=== PATIENT | female | born 1930 | race Caucasian/White ===

== ENCOUNTER 2016-09-09 18:56 | Emergency (ER) | payer MEDICARE ==
[2016-09-09 19:38] LABS: BASO # 0.1 K/mm3 (0.0-0.2); BASO % 0.8 % (0.2-1.0); EOS # 0.1 (0.0-0.5); EOS % 1.2 % (0.9-2.9); HEMOGLOBIN 14.4 gm/l (12.0-16.0); IMM NEUT% 0.3 % (0-1); LYMPH # 1.7 (1.0-4.8); LYMPH % 22.6 % (15-45); MEAN CELL VOLUME 99.6 fl (81.0-99.0); MEAN CORPUSCULAR HEMOGLOBIN 31.9 pg (27.0-31.0); MEAN PLATELET VOLUME 9.9 fl (7.4-10.4); MONO # 0.7 (0.0-0.8); MONO % 9.6 % (4-12); NEUT % 65.5 % (43-75); PLATELET COUNT 284 K/mm3 (130-400)
[2016-09-09 19:45] LABS: INR 1.63; PARTIAL THROMBOPLASTIN TIME 26.5 SECONDS (24.5-33.0); PROTHROMBIN TIME 17.5 SECONDS (9.3-11.4)
[2016-09-09 19:51] LABS: ALB/GLOB RATIO 1.3 (>1.0); ALBUMIN 3.5 gm/dL (3.5-5.7); CALCIUM 8.5 mg/dL (8.6-10.3); MAGNESIUM 1.8 mg/dL (1.9-2.7)
[2016-09-09] MEDS ORDERED: MAGNESIUM SULFATE 2 G/50 ML 50 ML IV ONE (20:15)
--- NOTE | 2016-09-09 20:43 | RAD ---
History: Dizziness. Comparison: 08/08/2014. 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 A prominent thoracolumbar scoliotic deformity is again seen. The heart size is relatively stable. There are significant degenerative changes noted of the left shoulder joint. No definite consolidation, effusion or pneumothorax is visualized. The hilar and mediastinal structures are stable. Impression: 1. A lower inspiratory volume. 2. A prominent thoracolumbar scoliotic deformity. 3. Significant left shoulder degenerative changes with an interval reverse right shoulder arthroplasty.
[2016-09-09 20:45] LABS: THYROID STIMULATING HORMONE 1.14 uIU/ml (0.34-5.60)
== END 2016-09-09 22:48 | disposition home or self-care (01) ==
LOC: ED 18:56
DX: R42 Dizziness and giddiness (principal); R00.2 Palpitations; I48.91 Unspecified atrial fibrillation; Z79.01 Long term (current) use of anticoagulants
CPT/HCPCS: 83880; 85025; 82553; 80053; 83735; 85730; 85610; 84443; 84484 ×2; 71020; 99284; 96365; 36415; 93005; 99283; J3475